=== PATIENT | female | born 1985 | race American Indian/Alaskan Native ===

== ENCOUNTER 2016-10-08 10:11 | Emergency (ER) | payer SELFPAY ==
[2016-10-08 11:00] LABS: Basophils % (Auto) 0.6 % (0.0-1.8); Eosinophils % (Auto) 2.8 % (0.0-4.3); Hematocrit 37.2 % (30.3-42.9); Hemoglobin 12.5 gm/dl (10.1-14.3); Mean Corpuscular HGB Conc 34 % (30-34); Mean Corpuscular Hemoglobin 30 pg (28-32); Mean Corpuscular Volume 88 fl (79-97); Platelet Count 259 K/mm3 (140-440); Red Blood Count 4.22 M/mm3 (3.65-5.03); Red Cell Distribution Width 16.6 % (13.2-15.2); White Blood Count 9.4 K/mm3 (4.5-11.0)
[2016-10-08] MEDS ORDERED: NORMODYNE IV ONE (11:06)
[2016-10-08] MEDS ORDERED: ZESTRIL PO ONE (11:07)
--- NOTE | 2016-10-08 11:07 | Emergency Department Report ---
ED Headache HPI - General Chief Complaint: Chest Pain Stated Complaint: CHEST PAIN/ABD PAIN/HEADACHE Time Seen by Provider: 10/08/16 10:56 Source: patient Exam Limitations: no limitations - History of Present Illness Timing/Duration: 1 week Quality: mild Head Injury Location: frontal, temporal Recent Head Trauma: frequent headaches Associated Symptoms: denies: confusion, fatigue, facial pain, fever/chills, loss of consciousness, nausea/vomiting, nasal congestion, nasal drainage, numbness in legs/feet, seizures, sinus infection, stiff neck, vision changes, weakness Allergies/Adverse Reactions: Allergies codeine Allergy (Verified 04/21/16 11:46) Rash Penicillins Allergy (Verified 04/21/16 11:46) Rash Home Medications: Ambulatory Orders Lisinopril/Hydrochlorothiazide [Zestoretic 20-25 mg] 1 tab PO QDAY #90 tab 10/08 ED Review of Systems ROS: Stated complaint: CHEST PAIN/ABD PAIN/HEADACHE Other details as noted in HPI Comment: All other systems reviewed and negative ED Past Medical Hx - Past Medical History Previous Medical History?: Yes Hx Hypertension: Yes Hx Psychiatric Treatment: Yes (outpatient while in [facility] custody) Hx Asthma: Yes Additional medical history: cutter - Surgical History Past Surgical History?: No - Social History Smoking Status: Current Every Day Smoker Substance Use Type: Alcohol, Prescribed - Medications Home Medications: Home Medications Medication Instructions Recorded Confirmed Last Taken Type Lisinopril/Hydrochlorothiazide 1 tab PO QDAY #90 tab 10/08/16 Unknown Rx [Zestoretic 20-25 mg] ED Physical Exam - General Limitations: No Limitations General appearance: alert, in no apparent distress - Head Head exam: Present: atraumatic, normocephalic - Eye Eye exam: Present: normal appearance - ENT ENT exam: Present: normal exam, normal orophraynx, mucous membranes moist - Neck Neck exam: Present: normal inspection - Respiratory Respiratory exam: Present: normal lung sounds bilaterally. Absent: respiratory distress - Cardiovascular Cardiovascular Exam: Present: regular rate, normal rhythm. Absent: systolic murmur, diastolic murmur, rubs, gallop - GI/Abdominal GI/Abdominal exam: Present: soft, normal bowel sounds - Extremities Exam Extremities exam: Present: normal inspection - Back Exam Back exam: Present: normal inspection - Neurological Exam Neurological exam: Present: alert, oriented X3 - Psychiatric Psychiatric exam: Present: normal affect, normal mood - Skin Skin exam: Present: warm, dry, intact, normal color. Absent: rash ED Course Vital Signs 10/08/16 10/08/16 10/08/16 10:35 11:50 11:58 Temperature 98.8 F Pulse Rate 95 H 83 83 Respiratory 16 Rate Blood Pressure 219/149 227/145 227/145 Blood Pressure [Left] O2 Sat by Pulse 100 Oximetry 10/08/16 10/08/16 10/08/16 12:41 13:00 13:24 Temperature 97.8 F 97.5 F L Pulse Rate 82 82 Respiratory 18 14 Rate Blood Pressure Blood Pressure 191/115 182/104 [Left] O2 Sat by Pulse 100 100 100 Oximetry ED Medical Decision Making - Lab Data Result diagrams: 10/08/16 10:44 10/08/16 10:44 - EKG Data EKG shows normal: sinus rhythm Rate: normal - EKG Data Interpretation: no acute changes - Radiology Data Radiology results: report reviewed, image reviewed - Medical Decision Making patient doing well here in the ER, no symptoms at this time, will dc and follow up and will refill her meds. Critical care attestation.: If time is entered above; I have spent that time in minutes in the direct care of this critically ill patient, excluding procedure time. ED Disposition Clinical Impression: Hypertension Disposition: DISCHARGED TO HOME OR SELFCARE Is pt being admited?: No Does the pt Need Aspirin: No Condition: Good Instructions: Hypertension (ED) Prescriptions: Lisinopril/Hydrochlorothiazide [Zestoretic 20-25 mg] 1 tab PO QDAY #90 tab Referrals: PRIMARY CARE, [Primary Care Provider] - 3-5 Days Forms: Work/School Release Form(ED) Time of Disposition: 13:33
[2016-10-08 11:09] LABS: INR 0.99 (0.87-1.13)
[2016-10-08 11:16] LABS: Anion Gap 16 mmol/L; Blood Urea Nitrogen 12 mg/dL (7-17); Calcium 8.8 mg/dL (8.4-10.2); Carbon Dioxide 26 mmol/L (22-30); Chloride 100.7 mmol/L (98-107); Glucose 101 mg/dL (65-100); Potassium 4.2 mmol/L (3.6-5.0); Sodium 138 mmol/L (137-145)
--- NOTE | 2016-10-08 11:46 | Cat Scan Report ---
CT HEAD WITHOUT CONTRAST INDICATION: Neuro deficits less than 6 hours or symptoms present upon awakening. Headache. 98N. COMPARISON: 06/24/2012. FINDINGS: Noncontrast head CT demonstrates normal ventricles and sulci without acute or recent infarct, hemorrhage, mass effect or midline shift. No abnormal extra-axial fluid collections. Posterior fossa structures and basilar cisterns appear within normal limits. Symmetric eye globes. Clear paranasal sinuses and mastoid air cells. Rightward nasal septal deviation. Intact calvarium. Normal overlying scalp soft tissues. CONCLUSION: No acute intracranial CT abnormality, as described. I phoned the above results to Dr. Heck in the ER, 11:38 AM, 10/08/2016. Thank you for the opportunity to participate in this patient's care.
[2016-10-08 13:24] VITALS: BP 182/104
== END 2016-10-08 14:05 | disposition home or self-care (01) ==
LOC: ED 10:11
DX: I10 Essential (primary) hypertension (principal); J45.909 Unspecified asthma, uncomplicated; F17.200 Nicotine dependence, unspecified, uncomplicated
CPT/HCPCS: 36415; 70450; 80048; 84484; 85025; 85610; 85670; 85730; 93005; 93010; 96374; 99284